=== PATIENT | female | born 1990 | race African-American/Black ===

== ENCOUNTER 2016-10-28 21:25 | Emergency (ER) | payer OTHER ==
[~2016-10-28] VITALS: Ht 165.1 cm; Wt 85.2 kg
[2016-10-28 21:49] LABS: CONTROL LINE UCG INT CTR LINE PRESENT
[2016-10-28 23:48] LABS: BASO % 0.3 % (0.0-1.0); EOS # 0.2 K/mm3 (0.0-0.50); EOS % 1.9 % (0.0-3.0); LARGE UNSTAINED CELL # 0.2 K/mm3 (0.0-0.4); LARGE UNSTAINED CELL % 1.7 % (0.0-4.0); LYMPH % 31.5 % (24.0-44.0); MEAN CORPUSCULAR HGB CONC 32.9 g/dl (32.0-36.5); MEAN CORPUSCULAR VOLUME 82.2 fl (80.0-96.0); MONO # 0.5 K/mm3 (0.0-0.8); MONO % 5.7 % (0.0-5.0); NEUTROPHILS # 5.4 K/mm3 (1.8-7.7); PLATELET COUNT, AUTOMATED 296 k/mm3 (150-450); RED CELL DISTRIBUTION WIDTH 13.5 % (11.5-14.5); WHITE BLOOD COUNT 9.1 K/mm3 (4.0-10.0)
[2016-10-29] MEDS ORDERED: metroNIDAZOLE (FLAGYL) 500 MG TAB PO ONE (00:15)
--- NOTE | 2016-10-29 00:20 | REPUSA ---
CLINICAL HISTORY: Vaginal bleeding. TECHNIQUE: Transabdominal and endovaginal ultrasound of the pelvis was performed. FINDINGS: The uterus is retroverted. Gestational sac measures 5.1 mm mean diameter, corresponding to gestational age 5 weeks and 2 days. There is no pole or heart beat noted. Moderate amount lf free fluid is noted. 1.7 cm left corpus lutheum cyst is noted. 2.2 cm left paraovarian cyst is seen. IMPRESSION: Gestational sac measures 5.1 mm mean diameter, corresponding to gestational age 5 weeks and 2 days. T here is no pole or heart beat noted. This may represent early . Consider short term fo llow up study in 4-7 days. Moderate amount lf free fluid is noted. 1.7 cm left corpus lutheum cyst is noted. 2.2 cm left paraovarian cyst is seen.
[2016-10-29 00:49] VITALS: BP 112/65
[2016-10-30] MEDS ORDERED: PRENTAB55 PO (11:39)
== END 2016-10-29 01:00 | disposition home or self-care (01) ==
LOC: M ED 21:25
DX: O20.0 Threatened abortion (principal); O26.891 Other specified pregnancy related conditions, first trimester; O34.81 Maternal care for other abnormalities of pelvic organs, first trimester; Z79.899 Other long term (current) drug therapy; Z88.5 Allergy status to narcotic agent

== ENCOUNTER 2016-10-30 11:32 | Emergency (ER) | payer OTHER ==
[~2016-10-30] VITALS: Ht 165.1 cm; Wt 85.2 kg
[2016-10-30] MEDS ORDERED: PRENTAB55 PO (11:39)
[2016-10-30 13:52] VITALS: BP 120/69
== END 2016-10-30 13:56 | disposition home or self-care (01) ==
LOC: M ED 11:32
DX: O26.891 Other specified pregnancy related conditions, first trimester (principal); Z3A.00 Weeks of gestation of pregnancy not specified; Z79.899 Other long term (current) drug therapy; Z88.5 Allergy status to narcotic agent

== ENCOUNTER 2016-11-09 17:17 | Emergency (ER) | payer OTHER ==
[~2016-11-09] VITALS: Ht 165.1 cm; Wt 81.8 kg
[~2016-11-09 17:17] MED LIST: PRENTAB55 PO
[2016-11-09] MEDS ORDERED: ACETAMINOPHEN 325 MG TAB PO ONE (18:00)
[2016-11-09 18:38] LABS: BASO % 0.4 % (0.0-1.0); EOS # 0.1 K/mm3 (0.0-0.50); LARGE UNSTAINED CELL # 0.2 K/mm3 (0.0-0.4); LARGE UNSTAINED CELL % 2.1 % (0.0-4.0); LYMPH # 1.9 K/mm3 (1.5-6.5); LYMPH % 24.8 % (24.0-44.0); MEAN CORPUSCULAR HEMOGLOBIN 27.3 pg (27.0-33.0); MEAN CORPUSCULAR HGB CONC 32.5 g/dl (32.0-36.5); MEAN CORPUSCULAR VOLUME 83.8 fl (80.0-96.0); MONO # 0.5 K/mm3 (0.0-0.8); MONO % 7.1 % (0.0-5.0); NEUTROPHILS # 4.6 K/mm3 (1.8-7.7); NEUTROPHILS % 64.5 % (36.0-66.0); PLATELET COUNT, AUTOMATED 278 k/mm3 (150-450); RED CELL DISTRIBUTION WIDTH 13.5 % (11.5-14.5); WHITE BLOOD COUNT 7.1 K/mm3 (4.0-10.0)
--- NOTE | 2016-11-09 19:00 | REPUSA ---
HISTORY: Vaginal spotting. LMP:LMP: 09/07/16. Gestational age by LMP: 9 weeks 0 day. YUNG by LMP: . TECHNIQUE: Transabdominal obstetrical ultrasound examination with color flow Doppler imaging. FINDINGS: The examination demonstrates a viable intrauterine with crown-rump length measuri ng 0.7 cm corresponding to a gestational age of 6 weeks 4 days with an YUNG of 07/01/17. Active heart rate is 110 bpm. No subchorionic hemorrhage is seen. No uterine mass is seen. There is titus l Doppler vascularity to the adnexa. There is a 1.5 cm left ovarian cyst, probably corpus luteum. No extrauterine pathologic mass or abno rmal fluid collection is seen. IMPRESSION: Normal viable intrauterine , as discussed above with estimated gestational age o f 6 weeks 4 days and YUNG of 07/01/17.
[2016-11-09 19:09] LABS: ANION GAP 7 MEQ/L (8-16); BLOOD UREA NITROGEN 5 MG/DL (7-18); CALCIUM LEVEL 8.9 MG/DL (8.5-10.1); CARBON DIOXIDE LEVEL 28 MEQ/L (21-32); CHLORIDE LEVEL 104 MEQ/L (98-107); CREATININE FOR GFR 0.79 MG/DL (0.55-1.02); GLOMERULAR FILTRATION RATE > 60.0 (>60); GLUCOSE, FASTING 80 MG/DL (70-105); HCG, SERUM QUANTITATIVE 31461 MIU/ML; POTASSIUM SERUM 3.8 MEQ/L (3.5-5.1); SODIUM LEVEL 139 MEQ/L (136-145)
[2016-11-09 19:37] VITALS: BP 132/67
== END 2016-11-09 19:41 | disposition home or self-care (01) ==
LOC: M ED 17:17
DX: O20.8 Other hemorrhage in early pregnancy (principal); Z3A.00 Weeks of gestation of pregnancy not specified; O99.89 Other specified diseases and conditions complicating pregnancy, childbirth and the puerperium; R10.2 Pelvic and perineal pain; R51 Headache; Z79.899 Other long term (current) drug therapy; Z88.5 Allergy status to narcotic agent

== ENCOUNTER 2016-11-13 09:37 | Emergency (ER) | payer OTHER ==
[~2016-11-13] VITALS: Ht 165.1 cm; Wt 81.8 kg
[2016-11-13] MEDS ORDERED: ACETAMINOPHEN 325 MG TAB PO ONE (10:15)
[2016-11-13 10:31] LABS: BASO % 0.5 % (0.0-1.0); EOS # 0.2 K/mm3 (0.0-0.50); EOS % 2.4 % (0.0-3.0); LARGE UNSTAINED CELL # 0.1 K/mm3 (0.0-0.4); LARGE UNSTAINED CELL % 1.1 % (0.0-4.0); LYMPH # 1.6 K/mm3 (1.5-6.5); LYMPH % 24.3 % (24.0-44.0); MEAN CORPUSCULAR HEMOGLOBIN 28.1 pg (27.0-33.0); MEAN CORPUSCULAR HGB CONC 33.4 g/dl (32.0-36.5); MEAN CORPUSCULAR VOLUME 84.1 fl (80.0-96.0); MONO # 0.3 K/mm3 (0.0-0.8); MONO % 5.1 % (0.0-5.0); NEUTROPHILS # 4.2 K/mm3 (1.8-7.7); NEUTROPHILS % 66.7 % (36.0-66.0); PLATELET COUNT, AUTOMATED 267 k/mm3 (150-450); RED CELL DISTRIBUTION WIDTH 13.7 % (11.5-14.5); WHITE BLOOD COUNT 6.3 K/mm3 (4.0-10.0)
[2016-11-13 11:36] VITALS: BP 110/72
[2016-11-13] MEDS ORDERED: metroNIDAZOLE (FLAGYL) 500 MG TAB PO ONE (12:00)
[2016-11-13] MEDS ORDERED: FLAG500T PO (12:02)
--- NOTE | 2016-11-13 12:12 | REP ---
FIRST TRIMESTER OB ULTRASOUND AND ENDOVAGINAL PROBE OB ULTRASOUND: 11/13/2016 COMPARISON: 11/09/2016 CLINICAL HISTORY: Vaginal bleeding at 7 weeks. Based on initial ultrasound she would be 7 weeks 1 day with EDC 07/01/2017. Today's exam, with both transabdominal and endovaginal probe performed, the bladder is underfilled. Uterus is anteverted. It measures up to 8.9 cm. There is a gestational sac in the body and fundus of the uterus and it has a pole with crown-rump length of 1.1 cm corresponding to 7 weeks 2 days. This gives an EDC of 06/30/2017. No subchorionic bleed was identified. Adnexa and cul-de-sac show a 1.2 cm corpus luteum on the left. There is a small amount of free fluid about the right adnexa and in the posterior cul-de-sac. heart activity noted at 136. A yolk sac was visible. IMPRESSION: 1. Single intrauterine gestation at 7 weeks 2 days by crown-rump, 7 weeks 1 day by initial ultrasound. EDC 07/01/2017 by initial ultrasound with normal growth. 2. No subchorionic bleed. 3. Presumed corpus luteum in the left ovary 1.2 cm. A small amount of free fluid about the right ovary in the cul-de-sac. No mass. Signed by Kiko Cunningham MD 11/13/2016 09:18 P
== END 2016-11-13 12:12 | disposition home or self-care (01) ==
LOC: M ED 09:37
DX: O23.591 Infection of other part of genital tract in pregnancy, first trimester (principal); Z32.01 Encounter for pregnancy test, result positive; Z3A.01 Less than 8 weeks gestation of pregnancy; O99.351 Diseases of the nervous system complicating pregnancy, first trimester; O99.89 Other specified diseases and conditions complicating pregnancy, childbirth and the puerperium; G47.30 Sleep apnea, unspecified; Z79.899 Other long term (current) drug therapy; Z88.5 Allergy status to narcotic agent

== ENCOUNTER 2017-10-28 13:17 | Emergency (ER) | payer OTHER, SELFPAY ==
[2017-10-28] MEDS: KETOROLAC 60 MG/2 ML VIAL (J1885) IM ×2 (16:02)
== END 2017-10-28 16:32 | disposition home or self-care (01) ==
LOC: M ED 13:17
DX: S39.002A Unspecified injury of muscle, fascia and tendon of lower back, initial encounter (principal); X58.XXXA Exposure to other specified factors, initial encounter; Y92.89 Other specified places as the place of occurrence of the external cause; G47.33 Obstructive sleep apnea (adult) (pediatric); Z88.5 Allergy status to narcotic agent
CPT/HCPCS: J1885

== ENCOUNTER 2018-03-29 09:59 | Emergency (ER) | payer OTHER, MEDICAID ==
[2018-03-29 11:50] LABS: BASO % 0.4 % (0.0-1.0); HEMATOCRIT 39.4 % (36.0-47.0); IMMATURE GRANULOCYTE % 0.3 % (0-3.0); LYMPH % 14.5 % (24.0-44.0); MEAN CORPUSCULAR HEMOGLOBIN 26.5 pg (27.0-33.0); MEAN CORPUSCULAR VOLUME 80.2 fl (80.0-96.0); MONO # 0.3 10^3/uL (0.0-0.8); MONO % 4.6 % (0.0-5.0); NEUTROPHILS # 5.6 10^3/uL (1.8-7.7); NEUTROPHILS % 80.2 % (36.0-66.0); PLATELET COUNT, AUTOMATED 309 10^3/uL (150-450); RED BLOOD COUNT 4.91 10^6/uL (4.00-5.40); RED CELL DISTRIBUTION WIDTH 13.9 % (11.5-14.5)
[2018-03-29 12:10] LABS: D-DIMER QUANT 743.67 ng/ml (<500)
[2018-03-29 12:51] LABS: ALBUMIN 3.5 GM/DL (3.2-5.2); ALBUMIN/GLOBULIN RATIO 0.92 (1.00-1.93); ALKALINE PHOSPHATASE 67 U/L (45-117); ALT/SGPT 39 U/L (12-78); AMYLASE 64 U/L (25-115); ANION GAP 11 MEQ/L (8-16); AST/SGOT 16 U/L (7-37); BILIRUBIN,DIRECT 0.1 MG/DL (0.0-0.2); BILIRUBIN,TOTAL 0.4 MG/DL (0.2-1.0); BLOOD UREA NITROGEN 8 MG/DL (7-18); CALCIUM LEVEL 8.4 MG/DL (8.5-10.1); CARBON DIOXIDE LEVEL 23 MEQ/L (21-32); CHLORIDE LEVEL 106 MEQ/L (98-107); CK-MB VALUE MASS < 1.0 NG/ML (<3.6); CPK CREATINE PHOSPHOKINASE 124 U/L (26-192); CREATININE FOR GFR 0.85 MG/DL (0.55-1.30); GLOMERULAR FILTRATION RATE > 60.0 (>60); GLUCOSE, FASTING 101 MG/DL (70-100); LIPASE 127 U/L (73-393); MB/CK RELATIVE INDEX 0.81 (< OR =4); POTASSIUM SERUM 3.9 MEQ/L (3.5-5.1); SODIUM LEVEL 140 MEQ/L (136-145); TOTAL PROTEIN 7.3 GM/DL (6.4-8.2); TROPONIN I < 0.02 NG/ML (< 0.10)
[2018-03-29 13:10] LABS: CONTROL LINE HCG INT CTR LINE PRESENT; HCG, SERUM QUALITATIVE NEGATIVE (NEGATIVE)
[2018-03-29] MEDS ORDERED: ISOVUE-370 76% 100ML VIAL (Q9967) As Ordered (13:12)
== END 2018-03-29 14:14 | disposition home or self-care (01) ==
LOC: M ED 09:59
DX: R05 Cough (principal); R07.9 Chest pain, unspecified; R11.2 Nausea with vomiting, unspecified; R19.7 Diarrhea, unspecified; G47.33 Obstructive sleep apnea (adult) (pediatric); Z88.5 Allergy status to narcotic agent
CPT/HCPCS: Q9967

== ENCOUNTER 2018-08-08 11:08 | Emergency (ER) | payer OTHER, SELFPAY ==
[~2018-08-08] VITALS: Ht 165.1 cm; Wt 80.8 kg
[~2018-08-08 11:08] MED LIST changes: +CYCL10TA PO; +FLAG500T PO; +IBUP80TA PO; +PROAAER10 INH; +bcp
[2018-08-08] MEDS ORDERED: ONDANSETRON 4MG/2ML VIAL (J2405) IV ONE (12:30)
[2018-08-08] MEDS ORDERED: NS 1,000 ML IV ONE (12:30)
[2018-08-08 13:07] LABS: BASO % 0.6 % (0.0-1.0); EOS % 0.6 % (0.0-3.0); HEMATOCRIT 39.7 % (36.0-47.0); HEMOGLOBIN 13.1 g/dl (12.0-15.5); LYMPH # 1.5 10^3/uL (1.5-6.5); LYMPH % 42.3 % (24.0-44.0); MEAN CORPUSCULAR VOLUME 81.9 fl (80.0-96.0); MONO # 0.6 10^3/uL (0.0-0.8); MONO % 18.4 % (0.0-5.0); NEUTROPHILS # 1.3 10^3/uL (1.8-7.7); NEUTROPHILS % 38.1 % (36.0-66.0); PLATELET COUNT, AUTOMATED 223 10^3/uL (150-450); RED BLOOD COUNT 4.85 10^6/uL (4.00-5.40); WHITE BLOOD COUNT 3.4 10^3/uL (4.0-10.0)
[2018-08-08 13:30] LABS: URINE PREG TEST NEGATIVE (NEGATIVE)
[2018-08-08 13:31] LABS: ALBUMIN 3.8 GM/DL (3.2-5.2); ALT/SGPT 23 U/L (12-78); AMYLASE 50 U/L (25-115); BILIRUBIN,DIRECT 0.1 MG/DL (0.0-0.2); BILIRUBIN,TOTAL 0.4 MG/DL (0.2-1.0); BLOOD UREA NITROGEN 8 MG/DL (7-18); CALCIUM LEVEL 8.3 MG/DL (8.5-10.1); CARBON DIOXIDE LEVEL 26 MEQ/L (21-32); CHLORIDE LEVEL 104 MEQ/L (98-107); CREATININE FOR GFR 0.83 MG/DL (0.55-1.30); GLOMERULAR FILTRATION RATE > 60.0 (>60); GLUCOSE, FASTING 86 MG/DL (70-100); LIPASE 163 U/L (73-393); POTASSIUM SERUM 3.4 MEQ/L (3.5-5.1); SODIUM LEVEL 137 MEQ/L (136-145); TOTAL PROTEIN 7.1 GM/DL (6.4-8.2)
[2018-08-08] MEDS ORDERED: ONDA4TAB6 PO (13:57)
[2018-08-08] MEDS ORDERED: DICY10CA13 PO (13:57)
[2018-08-08 13:58] VITALS: BP 107/59
== END 2018-08-08 14:32 | disposition home or self-care (01) ==
LOC: M ED 11:08
DX: R11.2 Nausea with vomiting, unspecified (principal); R19.7 Diarrhea, unspecified; R51 Headache; G47.33 Obstructive sleep apnea (adult) (pediatric); Z88.5 Allergy status to narcotic agent
CPT/HCPCS: 80048; 80076; 81001; 82150; 83690; 84703; 85025; 87507; 96374; 99284; J2405

== ENCOUNTER 2018-09-01 20:28 | Emergency (ER) | payer OTHER ==
[~2018-09-01] VITALS: Ht 165.1 cm; Wt 81.4 kg
[~2018-09-01 20:28] MED LIST changes: +DICY10CA13 PO; +ONDA4TAB6 PO
[2018-09-01] MEDS ORDERED: ACETAMINOPHEN 325 MG TAB PO ONE (21:15)
[2018-09-01] MEDS ORDERED: ACET-683 PO (22:32)
[2018-09-01 22:52] VITALS: BP 112/57
--- NOTE | 2018-09-01 22:56 | REPVR ---
EXAM: US First Trimester, Transabdominal EXAM DATE/TIME: 09/01/2018 9:44 PM CLINICAL HISTORY: 28 years old, female; complicated by abdominal or pelvic pain; Left lower quadrant; First trimester; Gestational age or lmp: Lmp3/; ; Additional info: L pelvic pain, tenderness, +preg TECHNIQUE: Imaging protocol: Real-time transabdominal obstetrical ultrasound of the maternal pelvis and a first trimester , less than 14 weeks 0 days, with image documentation. COMPARISON: No relevant prior studies available. FINDINGS: Other findings: Formal medial side demonstrated. No adnexal mass. GESTATION: Gestation: Single gestational sac within the uterus. Single pole demonstrated. Doyline-rump length measures 5.5 mm. Heart rate: heart rate is 115 beats per minute. Placenta: Unremarkable. No subchorionic bleed. Amniotic fluid: Amniotic and chorionic fluid are normal for gestational age. BIOMETRY: Estimated gestational age: Gestational age based on crown-rump length of 6 weeks 2 days. MATERNAL: Uterus: Unremarkable. Cervix: Unremarkable. Right adnexa: Unremarkable. Left adnexa: Unremarkable. Intraperitoneal: No intraperitoneal free fluid. IMPRESSION: Early gestation of 6 weeks 2 days based on crown-rump length. heart rate is below the typically expected rate at this age. Continued interval followup is suggested in order to document interval growth. Detailed anatomic structural survey Performed at 19-20 weeks if clinically desired. Electronically signed by: Yon Miles On 09/01/2018 22:55:55 PM
== END 2018-09-01 22:54 | disposition home or self-care (01) ==
LOC: M ED 20:28
DX: N83.202 Unspecified ovarian cyst, left side (principal); Z88.5 Allergy status to narcotic agent; Z3A.01 Less than 8 weeks gestation of pregnancy

== ENCOUNTER → 2018-10-25 | Outpatient (CLI) | payer OTHER ==
[~2018-10-25] MED LIST changes: +ACET-683 PO
== END ==
LOC: M SMT 10:16
PROVIDERS: ATTEND Obstetrics & Gynecology
DX: Z34.82 Encounter for supervision of other normal pregnancy, second trimester (principal)

== ENCOUNTER 2018-11-15 15:38 | Emergency (ER) | payer OTHER ==
[~2018-11-15] VITALS: Ht 165.1 cm; Wt 80.5 kg
[2018-11-15 16:20] LABS: BASO % 0.4 % (0.0-1.0); EOS # 0.1 10^3/uL (0.0-0.50); EOS % 0.7 % (0.0-3.0); HEMATOCRIT 33.1 % (36.0-47.0); HEMOGLOBIN 11.2 g/dl (12.0-15.5); LYMPH # 1.9 10^3/uL (1.5-6.5); LYMPH % 23.1 % (24.0-44.0); MEAN CORPUSCULAR HGB CONC 33.8 g/dl (32.0-36.5); MEAN CORPUSCULAR VOLUME 82.8 fl (80.0-96.0); MONO # 0.7 10^3/uL (0.0-0.8); NEUTROPHILS # 5.4 10^3/uL (1.8-7.7); NEUTROPHILS % 66.2 % (36.0-66.0); PLATELET COUNT, AUTOMATED 259 10^3/uL (150-450); WHITE BLOOD COUNT 8.2 10^3/uL (4.0-10.0)
[2018-11-15 16:38] LABS: BLOOD UREA NITROGEN 8 MG/DL (7-18); CALCIUM LEVEL 8.5 MG/DL (8.5-10.1); CARBON DIOXIDE LEVEL 24 MEQ/L (21-32); CHLORIDE LEVEL 106 MEQ/L (98-107); CREATININE FOR GFR 0.55 MG/DL (0.55-1.30); GLOMERULAR FILTRATION RATE > 60.0 (>60); GLUCOSE, FASTING 78 MG/DL (70-100); POTASSIUM SERUM 3.9 MEQ/L (3.5-5.1); SODIUM LEVEL 137 MEQ/L (136-145)
--- NOTE | 2018-11-15 19:44 | REPVR ---
EXAM: US Abdomen Limited, Right Upper Quadrant EXAM DATE/TIME: 11/15/2018 6:57 PM CLINICAL HISTORY: 28 years old, female; Abdominal pain; ; Additional info: Left upper abd pain/ TECHNIQUE: Imaging protocol: Real-time ultrasound of the abdomen with image documentation. Examination was focused on the right upper quadrant. COMPARISON: No relevant prior studies available. FINDINGS: Liver: The liver measures 16.7 cm in length, upper normal in size. Gallbladder: The gallbladder wall measures 1.7 mm. No visible stones. The sonographic Osborn's sign was negative. Common bile duct: The common bile duct measures 3.1 mm. Pancreas: Visualized pancreas is unremarkable. Right kidney: The right kidney measures 11.4 cm in length. No hydronephrosis. Left kidney: The left kidney measures 10.0 cm in length. No hydronephrosis. Uterus: There is a gravid uterus. The heart rate is 139 bpm. IMPRESSION: No acute findings. Electronically signed by: Estephania Alas On 11/15/2018 19:44:07 PM
[2018-11-15 20:34] VITALS: BP 117/67
--- NOTE | 2018-12-02 07:01 | REP ---
Obstetric ultrasound, stat request for abdominal pain on the left.: There is a single intrauterine gestation. position is variable. There is movement and cardiac activity. The heart rate is 143 beats per minute. The placenta is posterior. There is no placenta previa or abruptio. The placenta is grade 1. The amniotic fluid volume subjectively is normal. The cervix measures 5.3 pounds. Gestational age by today's ultrasound 17 weeks 2 days/YUNG 04/23/2019. Gestational age by the first ultrasound 17 weeks 1 day/YUNG 04/24/2019 Gestational age by LMP is 18 weeks 4 days/YUNG 2018. weight is 193 grams/0 pounds, 6 ounces. This is the 55 percentile for 17 weeks 1 day. This is the 5th percentile for 18 weeks 4 days. The following anatomic structures are identified and are unremarkable: Cranium, choroid plexus, cavum septum pellucidum, diaphragm, stomach, cord insertion, three-vessel cord, kidneys, bladder and upper lower extremities. The following structures are suboptimally demonstrated because of position and age: Cerebellum, facial profile, upper lip, lungs, four-chamber heart, cardiac right and left ventricular outflow tracts and spine. A followup study dedicated to these structures might be considered. Electronically Signed by Kodak Son MD 12/02/2018 06:53 A
== END 2018-11-15 20:36 | disposition home or self-care (01) ==
LOC: M ED 15:38
DX: O26.892 Other specified pregnancy related conditions, second trimester (principal); R10.32 Left lower quadrant pain; O99.352 Diseases of the nervous system complicating pregnancy, second trimester; G47.33 Obstructive sleep apnea (adult) (pediatric); Z87.891 Personal history of nicotine dependence; Z88.5 Allergy status to narcotic agent; Z3A.17 17 weeks gestation of pregnancy

== ENCOUNTER → 2018-12-24 | Outpatient (CLI) | payer OTHER ==
[~2018-12-24] MED LIST changes: +MAPA500T2 PO
--- NOTE | 2018-12-24 19:34 | REP ---
OB ULTRASOUND: Real-time sonographic evaluation of the gravid uterus is performed. There is a single living intrauterine gestation. The estimated gestational age is 22 weeks 4 days. EDC 04/25/2019. Today's measurements indicate appropriate growth. BPD 53 mm 22 weeks 1 day, 39th percentile. HC 200 mm 22 weeks 1 day, 37th percentile. AC 168 mm 21 weeks 6 days, 33rd percentile. Femur length 38 mm 22 weeks 1 day, 38th percentile. HC/AC ratio 1.19 within normal range. Estimated weight 466 grams, 37th percentile. Cervix is closed and measures 3.6 cm in length. heart rate 140 beats per minute. Visualized anatomy includes posterior fossa, upper lip, four chamber heart, ventricular outflow tracts, and spine which are all grossly unremarkable. position is vertex. Placenta is posterior and grade 0 with previa or abruption. Amniotic fluid within normal limits. Electronically Signed by Kodak Camarena MD 12/26/2018 07:56 A
== END ==
LOC: M RAD 16:59
PROVIDERS: ATTEND Obstetrics & Gynecology
DX: Z34.82 Encounter for supervision of other normal pregnancy, second trimester (principal)

== ENCOUNTER 2018-12-28 07:35 | Outpatient (CLI) | payer OTHER ==
[~2018-12-28] VITALS: Ht 165.1 cm; Wt 83.0 kg
[~2018-12-28 07:35] MED LIST changes: -MAPA500T2 PO
[2018-12-28 07:53] VITALS: BP 109/64
[2018-12-28] MEDS ORDERED: MAPA500T2 PO (07:55)
--- NOTE | 2018-12-28 08:27 | IPNPDOC ---
Text Note Date of Service The patient was seen on 12/28/18. NOTE Outpatient 28yo YUNG 04/25/2019. Presents @ 23 wks with complaints of lower abdominal cramping, L leg numbness, tingling and loss of strength. Reports persistent lower back pain throughout the . Resting comfortably in bed. Toddler is with her in the stroller Abdomen soft, gravid appropriate size FH 140's. Chart reviewed. Pt hasn't acquired her PNP, urine, GC,CT yet. Labs ordered Dr Cabrales aware of pt status and will reassess. VS,Fishbone, I+O VS, Fishbone, I+O Vital Signs Date Time Temp Pulse Resp B/P (MAP) Pulse Ox O2 Delivery O2 Flow Rate FiO2 12/28/18 07:53 98.0 85 16 109/64 (79) Abbi Guillermo CNM Dec 28, 2018 08:27
[2018-12-28 09:09] LABS: BASO % 0.3 % (0.0-1.0); EOS # 0.1 10^3/uL (0.0-0.5); EOS % 0.6 % (0.0-3.0); HEMATOCRIT 32.2 % (36.0-47.0); HEMOGLOBIN 10.7 g/dl (12.0-15.5); LYMPH # 1.9 10^3/uL (1.5-5.0); LYMPH % 24.8 % (24.0-44.0); MEAN CORPUSCULAR HGB CONC 33.2 g/dl (32.0-36.5); MEAN CORPUSCULAR VOLUME 81.3 fl (80.0-96.0); MONO # 0.7 10^3/uL (0.0-0.8); MONO % 8.7 % (0.0-5.0); NEUTROPHILS # 5.1 10^3/uL (1.5-8.5); NEUTROPHILS % 65.2 % (36.0-66.0); PLATELET COUNT, AUTOMATED 270 10^3/uL (150-450); RED BLOOD COUNT 3.96 10^6/uL (4.00-5.40); WHITE BLOOD COUNT 7.8 10^3/uL (4.0-10.0)
[2018-12-28 09:13] LABS: APPEARANCE, URINE CLEAR (CLEAR); BACTERIA, URINE AUTO 1+ (NEGATIVE); BILIRUBIN, URINE AUTO NEGATIVE (NEGATIVE); BLOOD, URINE BLOOD NEGATIVE (NEGATIVE); COLOR, URINE YELLOW (YELLOW); GLUCOSE, URINE (UA) AUTO NEGATIVE (NEGATIVE); KETONE, URINE AUTO TRACE mg/dL (NEGATIVE); LEUKOCYTE ESTERASE, URINE AUTO NEGATIVE (NEGATIVE); MUCUS, URINE SMALL (NEGATIVE); NITRITE, URINE AUTO NEGATIVE (NEGATIVE); PROTEIN, URINE AUTO NEGATIVE (NEGATIVE); RBC, URINE AUTO 1 /HPF (0-3); SPECIFIC GRAVITY URINE AUTO 1.014 (1.002-1.035); SQUAMOUS EPITHELIAL CELL UR AU 1 /HPF (0-6); UROBILINOGEN, URINE AUTO 0.2 mg/dL (0.0-2.0); WBC, URINE AUTO 2 /HPF (0-3)
[2018-12-28 10:36] LABS: CHLAMYDIA DNA AMPLIFICATION POSITIVE (NEGATIVE); GC DNA AMPLIFICATION NEGATIVE (NEGATIVE)
[2018-12-30 10:43] LABS: HEPATITIS C VIRUS ABY INDEX 0.1 INDEX (<0.8); HIV 1&2 SCREEN CENTAUR NEGATIVE (NEGATIVE); RUBELLA IgG QUALITATIVE IMMUNE (IMMUNE)
== END 2018-12-28 09:40 | disposition home or self-care (01) ==
LOC: M LDO 07:35
PROVIDERS: ATTEND Obstetrics & Gynecology
DX: O26.892 Other specified pregnancy related conditions, second trimester (principal); Z3A.23 23 weeks gestation of pregnancy; M54.5 Low back pain